=== PATIENT | male | born 1945 | race Caucasian/White ===

== ENCOUNTER 2020-07-22 11:58 | Inpatient (IN) | payer MEDICARE, BC ==
[~2020-07-22] VITALS: Ht 180.3 cm; Wt 83.9 kg
--- NOTE | 2020-07-22 12:05 | NUR ---
BIB C/O ABDOMINAL PAIN AND NON-RADIATING CHEST PAIN STARTED AROUND 0900. RATES PAIN 10/10. DENIES SOB. RESPIRATION REGULAR AND UNLABORED. ATTACHED TO THE MONITOR. WARM BLANKET PROVIDED. WILL CONTINUE TO MONITOR THE PATIENT.
[2020-07-22] MEDS ORDERED: ZOLP10TA2 PO (12:13)
[2020-07-22] MEDS ORDERED: ROSU10TA29 PO (12:13)
[2020-07-22] MEDS ORDERED: APAL60TA PO (12:13)
[2020-07-22] MEDS ORDERED: LORA-259 PO (12:13)
[2020-07-22] MEDS ORDERED: ASPI-1169 PO (12:13)
[2020-07-22] MEDS ORDERED: CALC1TAB30 PO (12:13)
[2020-07-22] MEDS ORDERED: AMLO-213 PO (12:13)
[2020-07-22] MEDS ORDERED: MULT-978 PO (12:13)
[2020-07-22] MEDS ORDERED: OLME40TA18 PO (12:13)
[2020-07-22] MEDS ORDERED: PANTOPRAZOLE 40 MG VIAL ONE (12:15)
[2020-07-22] MEDS ORDERED: ONDANSETRON HCL/PF 4 MG/2 ML VIAL ONE (12:15)
[2020-07-22] MEDS ORDERED: HYDROMORPHONE 1 MG/1 ML DISP.SYRIN ONE (12:16)
[2020-07-22 12:28] LABS: BASOPHILS % (AUTO) 0.5 % (0.0-2.0); EOSINOPHILS % (AUTO) 0.5 % (0.0-6.0); HEMATOCRIT 44 % (39-51); HEMOGLOBIN 15.2 g/dL (13.5-17.5); LYMPHOCYTES % (AUTO) 13.1 % (20.0-44.0); MEAN CORPUSCULAR HGB CONC 35 g/dl (31.0-36.0); MEAN CORPUSCULAR VOLUME 87 fL (80-96); MONOCYTES # (AUTO) 0.5 /CMM (0.1-1.30); MONOCYTES % (AUTO) 6.3 % (2.0-12.0); NEUTROPHILS # (AUTO) 5.9 /CMM (1.8-8.9); NEUTROPHILS % (AUTO) 79.6 % (43.0-81.0); PLATELET COUNT (AUTO) 223 /CMM (150-450); RED BLOOD CELL COUNT(AUTO) 5.02 MIL/uL (4.5-6.0); WHITE BLOOD COUNT (AUTO) 7.4 K/uL (4.3-11.0)
[2020-07-22] MEDS ORDERED: HYDROMORPHONE INJ 2 MG/ML DISP.SYRIN IV ONE (12:30)
[2020-07-22] MEDS ORDERED: IV NS 0.9% 500 ML BAG IV ONE (12:30)
[2020-07-22] MEDS ORDERED: ONDANSETRON HCL/PF 4 MG/2 ML VIAL IVP ONE (12:30)
[2020-07-22] MEDS ORDERED: PANTOPRAZOLE 40 MG VIAL IV ONE (12:30)
[2020-07-22 12:33] LABS: CALCIUM, SERUM 9.5 mg/dL (8.5-10.1); POTASSIUM 2.9 mmol/L (3.5-5.1)
[2020-07-22 12:39] LABS: ALBUMIN 4.3 g/dL (3.4-5.0); BILIRUBIN,DIRECT 0.5 mg/dL (0.0-0.2); BILIRUBIN,TOTAL 1.3 mg/dL (0.2-1.0); TOTAL PROTEIN, SERUM 7.1 g/dL (6.4-8.2)
[2020-07-22] MEDS ORDERED: POTASSIUM CHLORIDE 20 MEQ TAB.PRT.SR PO ONE ×2 (13:00→13:46)
--- NOTE | 2020-07-22 13:26 | NUR ---
CALLED [facility], PAGED JAYCE
[2020-07-22] MEDS ORDERED: hydrALAZINE HCL IV 20 MG VIAL IV ONE (13:30)
--- NOTE | 2020-07-22 13:32 | NUR ---
LUIS MANUEL NEWBY. PER SVETLANA'S OFFICE, PATIENT WILL GO UNDER DR. ISSA
--- NOTE | 2020-07-22 13:44 | NUR ---
DR. ISSA GAVE TELEPHONE ORDERS
[2020-07-22] MEDS ORDERED: hydrALAZINE HCL IV 20 MG VIAL ONE (13:46)
--- NOTE | 2020-07-22 14:01 | NUR ---
CALLED NURSING SUP FOR TELE BED
--- NOTE | 2020-07-22 14:21 | NUR ---
BED 307-1
--- NOTE | 2020-07-22 14:40 | NUR ---
REPORT GIVEN TO FLORENCIA DUNLAP FOR CODY
[2020-07-22] MEDS ORDERED: LORAZEPAM 1 MG TABLET PO PRN (15:00)
[2020-07-22] MEDS ORDERED: ZOLPIDEM TARTRATE 10 MG TABLET PO PRN (15:00)
--- NOTE | 2020-07-22 15:09 | NUR ---
PT TRANSPORTED TO UNIT ON [facility] WITH EMT ADN RN AT BEDSIDE W/ ACLS PROTOCOL. NAD NOTED DURING TRANSPORT. PT AMBULATED FROM [facility] TO BED ON [facility] WITH AN AIDE OF HIS CANE.
--- NOTE | 2020-07-22 15:10 | NUR ---
RN NOTES RECEIVED IN UNIT AT ROOM 307-1, PATIENT AMBULATED TO BED USING SINGLE POINT CANE, ACCOMPANIED BY RP.
[2020-07-22] MEDS ORDERED: CLONIDINE HCL 0.1 MG TABLET PO PRN (15:30)
[2020-07-22] MEDS ORDERED: IV D5/ 0.9% NACL 1,000 ML IV PRN (15:30)
[2020-07-22] MEDS ORDERED: MORPHINE SULFATE INJ 2 MG/ML DISP.SYRIN IV PRN (15:30)
[2020-07-22] MEDS ORDERED: ACETAMINOPHEN 325 MG TABLET PO PRN (15:30)
[2020-07-22] MEDS ORDERED: ONDANSETRON HCL/PF 4 MG/2 ML VIAL IVP PRN (15:30)
[2020-07-22 15:51] LABS: PHOSPHORUS 3.6 mg/dL (2.5-4.9)
[2020-07-22] MEDS: POTASSIUM CHLORIDE 20 MEQ TAB.PRT.SR PO SCH ×3 (15:52→18:45)
[2020-07-22 16:00] VITALS: BP 179/87
[2020-07-22] MEDS: AMLODIPINE BESYLATE 10 MG TABLET PO SCH (16:02)
[2020-07-22 16:21] LABS: THYROID STIMULATING HORMONE 3.019 uIU/mL (0.358-3.74)
[2020-07-22] MEDS ORDERED: ATORVASTATIN 10 MG TABLET PO SCH (18:00)
[2020-07-22] MEDS ORDERED: LEVOFLOXACIN 500 MG /D5W 100ML 500 MG in PREMIX 1 EA IV SCH (19:00)
[2020-07-22] MEDS: METRONIDAZOLE 500MG/ NS 100ML 500 MG in PREMIX 1 EA IV SCH (19:30)
--- NOTE | 2020-07-22 19:41 | NUR ---
DELIVERY DRIVER ASSISTANT OPENING NOTES PATIENT WAS SEEN AWAKE LYING IN BED. PATIENT IS ALERT AND ORIENTED X4. PATIENT IS ON 2L OF OXYGEN VIA NASAL CANNULA WITH NO RESPIRATORY DISTRESS NOTED. PT HAS AN IV ACCESS ON HIS LEFT WRIST G#20 CURRENTLY RUNNING AN ANTIBIOTIC. SAFETY PRECAUTIONS IN PLACE: BED LOCKED, SIDE RAILS UP, AND CALL LIGHT WITHIN REACH OF THE PATIENT. WILL CONTINUE TO MONITOR THE PATIENT.
[2020-07-22 20:24] VITALS: BP 180/68
[2020-07-22] MEDS ORDERED: ENOXAPARIN SODIUM 40 MG/0.4 ML DISP.SYRIN SQ SCH (21:00)
--- NOTE | 2020-07-22 23:18 | NUR ---
INFORMATION SYSTEMS AUDITOR NOTES PATIENT CURRENTLY HAS A BLOOD PRESSURE OF 170/77 AFTER RECEIVING CATAPRES 0.1 MG BY MOUTH NEEDED FOR A BLOOD PRESSURE OF 177/77 AT 2116. PATIENT'S CURRENTLY ASYMPTOMATIC. PER PATIENT, HIS BLOOD PRESSURE USUALLY RANGES ABNORMALLY HIGH. DR. ISSA MADE AWARE. NO NEW ORDERS WERE GIVEN. WILL CONTINUE TO MONITOR THE PATIENT.
[2020-07-23 00:01] VITALS: BP 165/83
[2020-07-23] MEDS: METRONIDAZOLE 500MG/ NS 100ML 500 MG in PREMIX 1 EA IV SCH ×2 (02:30→10:00)
[2020-07-23 04:29] VITALS: BP 155/67
[2020-07-23 05:53] LABS: BASOPHILS % (AUTO) 0.2 % (0.0-2.0); EOSINOPHILS % (AUTO) 1.9 % (0.0-6.0); HEMATOCRIT 38 % (39-51); HEMOGLOBIN 12.9 g/dL (13.5-17.5); LYMPHOCYTES # (AUTO) 0.3 /CMM (0.8-4.8); LYMPHOCYTES % (AUTO) 7.8 % (20.0-44.0); MEAN CORPUSCULAR HGB CONC 34 g/dl (31.0-36.0); MEAN CORPUSCULAR VOLUME 89 fL (80-96); MONOCYTES # (AUTO) 0.3 /CMM (0.1-1.30); MONOCYTES % (AUTO) 6.6 % (2.0-12.0); NEUTROPHILS # (AUTO) 3.5 /CMM (1.8-8.9); NEUTROPHILS % (AUTO) 83.5 % (43.0-81.0); PLATELET COUNT (AUTO) 149 /CMM (150-450); RED BLOOD CELL COUNT(AUTO) 4.25 MIL/uL (4.5-6.0); WHITE BLOOD COUNT (AUTO) 4.2 K/uL (4.3-11.0)
[2020-07-23 06:15] LABS: ALBUMIN 3.2 g/dL (3.4-5.0); CALCIUM, SERUM 8.4 mg/dL (8.5-10.1); CREATININE 0.9 mg/dL (0.6-1.3); MAGNESIUM 2.1 mg/dL (1.8-2.4); PHOSPHORUS 3.4 mg/dL (2.5-4.9); POTASSIUM 3.8 mmol/L (3.5-5.1); TOTAL PROTEIN, SERUM 5.7 g/dL (6.4-8.2)
--- NOTE | 2020-07-23 07:04 | NUR ---
STAFF TRAINING AND DEVELOPMENT MANAGER CLOSING NOTES PATIENT WAS SEEN AWAKE LYING IN BED. PATIENT IS ALERT AND ORIENTED X4. PATIENT IS ABLE TO MAKE HIS NEEDS KNOWN.; PATIENT IS ON 2L OF OXYGEN VIA NASAL CANNULA WITH NO RESPIRATORY DISTRESS NOTED. PT HAS AN IV ACCESS ON HIS LEFT WRIST G#20 CURRENTLY RUNNING D5NS AT 75 ML/HOUR. SAFETY PRECAUTIONS IN PLACE: BED LOCKED, BED ALARM ON, SIDE RAILS UP X3, AND CALL LIGHT WITHIN REACH OF THE PATIENT. WILL ENDORSE CARE TO DAY SHIFT NURSE.
[2020-07-23 07:49] VITALS: BP 156/74
--- NOTE | 2020-07-23 08:00 | NUR ---
RN OPENING NOTE RECEIVED PATIENT IN BED, AWAKE AND ORIENTED X 4, ABLE TO RESPONDS ALL STIMULI. NO DISTRESS OR DISCOMFORT OBSERVED. SKIN IS WARM TO TOUCH, KEEP CLEAN/DRY, INTACT IV SITE ON LEFT WRIST G20 RUNNING D5 NS AT 75ML/HR CURRENTLY. RESPIRATORY EVEN AND UNLABORED ON ROOM AIR. KEPT ELEVATED HOB FOR ENSURE AIRWAY AND ASPIRATION PRECAUTION, ALSO LOWEST BED POSITION. CALL LIGHT WITHIN REACH, WILL CONTINUE TO MONITOR.
[2020-07-23] MEDS ORDERED: DEXL60CA3 PO (08:22)
[2020-07-23] MEDS: AMLODIPINE BESYLATE 10 MG TABLET PO SCH (08:44)
[2020-07-23] MEDS ORDERED: NIFEdipine XL (30MG) 30 MG TAB PO SCH (09:00)
[2020-07-23] MEDS ORDERED: LOSARTAN POTASSIUM 50 MG TABLET PO SCH (09:00)
[2020-07-23] MEDS ORDERED: PANTOPRAZOLE 40 MG VIAL IV SCH (09:00)
[2020-07-23] MEDS ORDERED: ASPIRIN 81 MG TAB.CHEW PO SCH (09:00)
--- NOTE | 2020-07-23 12:50 | NUR ---
GIVEN DISCHARGE INSTRUCTION INCLUDE LEAD NET SOFTWARE DEVELOPER NEW MEDICATION, AND SIDE EFFECTS. PATIENT COMPLETED HIDE SCAN, WILL FOLLOW UP MD ON NEXT WEEK. PATIENT IN MEDICALLY STABLE CONDITION.
== END 2020-07-23 13:00 | disposition home or self-care (01) | DRG 392 ==
LOC: ER 11:58 → TELE 14:25 → MED 07-23 08:00
PROVIDERS: ADMIT Legal Medicine; ATTEND Legal Medicine
DX: K29.80 Duodenitis without bleeding (principal); I10 Essential (primary) hypertension; N32.81 Overactive bladder; K80.20 Calculus of gallbladder without cholecystitis without obstruction; E87.6 Hypokalemia; Z20.822 Contact with and (suspected) exposure to COVID-19; Z85.46 Personal history of malignant neoplasm of prostate; Z90.49 Acquired absence of other specified parts of digestive tract; Z98.890 Other specified postprocedural states; Z79.82 Long term (current) use of aspirin; Z79.899 Other long term (current) drug therapy; F41.9 Anxiety disorder, unspecified; G47.00 Insomnia, unspecified; R07.82 Intercostal pain; R74.01 Elevation of levels of liver transaminase levels; K40.20 Bilateral inguinal hernia, without obstruction or gangrene, not specified as recurrent
CPT/HCPCS: 36415; 71045-TC; 76705-TC; 78226; 80048-TC; 80053-TC; 80076-TC; 82962-TC; 83690-TC; 83735-TC; 84075-TC; 84100-TC; 84439-TC; 84443-TC; 84484-TC; 85025-TC; 87081-TC; A4216; A9537; C9113; C9803; G0378; J0360; J1170; J1650; J1956; J2270; J2405; J7040; J7042

== ENCOUNTER 2022-10-18 12:54 | Inpatient (IN) | payer MEDICARE, BC ==
[~2022-10-18] VITALS: Ht 177.8 cm; Wt 90.9 kg
[~2022-10-18 12:54] MED LIST: AMLO-213 PO; ASPI-1169 PO; CALC1TAB30 PO; DEXL60CA3 PO; LORA-259 PO; MULT-978 PO; OLME40TA18 PO; ROSU10TA29 PO; ZOLP10TA2 PO
[2022-10-18] MEDS ORDERED: IV NS 0.9% 250 ML IV ONE (13:25)
[2022-10-18] MEDS ORDERED: IOHEXOL-350 100 ML VIAL IV ONE (13:25)
[2022-10-18 13:34] LABS: BASOPHILS % (AUTO) 0.3 % (0.0-2.0); EOSINOPHILS % (AUTO) 0.3 % (0.0-6.0); HEMATOCRIT 39 % (39-51); HEMOGLOBIN 13.2 g/dL (13.5-17.5); LYMPHOCYTES # (AUTO) 0.5 K/uL (0.8-4.8); LYMPHOCYTES % (AUTO) 4.1 % (20.0-44.0); MEAN CORPUSCULAR HEMOGLOBIN 29 PG (26.0-33.0); MEAN CORPUSCULAR HGB CONC 34 g/dl (31.0-36.0); MEAN CORPUSCULAR VOLUME 86 fL (80-96); MONOCYTES # (AUTO) 0.6 K/uL (0.1-1.30); MONOCYTES % (AUTO) 5.8 % (2.0-12.0); NEUTROPHILS # (AUTO) 9.9 K/uL (1.8-8.9); NEUTROPHILS % (AUTO) 89.5 % (43.0-81.0); PLATELET COUNT (AUTO) 244 K/uL (150-450); RED BLOOD CELL COUNT(AUTO) 4.56 MIL/uL (4.5-6.0); RED CELL DISTRIBUTION WIDTH 13.8 % (11.5-15.0)
[2022-10-18 13:45] LABS: INR 1.02 (0.91-1.10); PARTIAL THROMBOPLASTIN TIME 26.5 SEC (24.3-34.3); PROTHROMBIN TIME 10.7 SECS (9.2-11.1)
[2022-10-18 13:58] LABS: ALANINE AMINOTRANSFERASE 21 U/L (12-78); ALBUMIN 3.1 g/dL (3.4-5.0); ALKALINE PHOSPHATASE 93 U/L (46-116); BILIRUBIN,DIRECT 0.2 mg/dL (0.0-0.2); BILIRUBIN,TOTAL 1.3 mg/dL (0.2-1.0); TOTAL PROTEIN, SERUM 6.9 g/dL (6.4-8.2)
[2022-10-18 14:09] LABS: ASPARTATE AMINOTRANSFERASE 14 U/L (15-37)
[2022-10-18] MEDS ORDERED: MORPHINE SULFATE INJ 2 MG/ML DISP.SYRIN IV ONE (14:30)
[2022-10-18] MEDS ORDERED: ONDANSETRON HCL/PF - ER 4 MG/2 ML VIAL IV ONE (14:30)
[2022-10-18] MEDS ORDERED: ONDANSETRON HCL/PF 4 MG/2 ML VIAL ONE (14:38)
[2022-10-18] MEDS ORDERED: MORPHINE SULFATE INJ 2 MG/ML DISP.SYRIN ONE (14:39)
[2022-10-18 15:02] LABS: CALCIUM, SERUM 9.4 mg/dL (8.5-10.1); CARBON DIOXIDE 22 mmol/L (21-32); CHLORIDE 103 mmol/L (98-107); CREATININE 1.9 mg/dL (0.6-1.3); GLUCOSE 124 mg/dL (74-106); POTASSIUM 3.3 mmol/L (3.5-5.1); SODIUM SERUM 142 mmol/L (136-145); UREA NITROGEN, BLOOD 33 mg/dL (7-18)
[2022-10-18 15:07] LABS: ALANINE AMINOTRANSFERASE 20 U/L (12-78); ALKALINE PHOSPHATASE 86 U/L (46-116); ASPARTATE AMINOTRANSFERASE 14 U/L (15-37); BILIRUBIN,TOTAL 1.2 mg/dL (0.2-1.0); TOTAL PROTEIN, SERUM 6.9 g/dL (6.4-8.2)
[2022-10-18] MEDS ORDERED: ROSU10TA2 PO (15:20)
[2022-10-18] MEDS ORDERED: FLUT1DIS5 IH (15:20)
[2022-10-18] MEDS ORDERED: GEMTESA PO (15:20)
[2022-10-18] MEDS ORDERED: TRAZ-257 PO (15:20)
[2022-10-18] MEDS ORDERED: ALBU8.5H8 IH (15:20)
[2022-10-18] MEDS ORDERED: OXYC5TAB3 PO (15:20)
[2022-10-18] MEDS ORDERED: FLUT12AE5 IH (15:20)
[2022-10-18] MEDS ORDERED: OLME40TA12 PO (15:20)
[2022-10-18] MEDS ORDERED: AMLO10TA4 PO (15:20)
[2022-10-18] MEDS ORDERED: IV NS 0.9% 1,000 ML BAG IV ONE (15:30)
[2022-10-18] MEDS ORDERED: MORPHINE SULFATE INJ 2 MG/ML DISP.SYRIN IV PRN (16:30)
[2022-10-18] MEDS ORDERED: MAGNESIUM HYDROXIDE 30 ML UDC PO PRN (16:30)
[2022-10-18] MEDS ORDERED: ACETAMINOPHEN 325 MG TABLET PO PRN (16:30)
[2022-10-18] MEDS ORDERED: Z GUARD REMEDY 4 OZ OINT TP PRN (16:30)
[2022-10-18] MEDS ORDERED: HYDROCODONE/APAP 5/325MG TABLET PO PRN (16:30)
[2022-10-18] MEDS ORDERED: MAG HYDROX/AL HYDROX/SIMETH 30 ML UDC PO PRN (16:30)
[2022-10-18] MEDS ORDERED: ONDANSETRON HCL/PF 4 MG/2 ML VIAL IVP PRN (16:30)
[2022-10-18] MEDS ORDERED: HEPARIN SODIUM, PORCINE 5000 UNITS/1 ML VIAL IV ONE (16:37)
[2022-10-18] MEDS: HEPARIN INFUSION/D5W 500 ML IV PRN (18:41)
[2022-10-18 20:00] VITALS: BP 135/65; TEMP 98.2; O2SAT 95
[2022-10-18] MEDS: TRAZODONE 50 MG TABLET PO SCH (22:00)
[2022-10-18] MEDS ORDERED: ALBUTEROL FS 2.5 MG/3 ML VIAL.NEB IH PRN (22:30)
[2022-10-18] MEDS: AMLODIPINE BESYLATE 10 MG TABLET PO SCH (22:35)
[2022-10-18] MEDS: TRAZODONE 50 MG TABLET PO PRN (22:40)
[2022-10-19] VITALS (10 sets, daily range): BP systolic 108–172; BP diastolic 58–78; TEMP 98–98.8; O2SAT 94–98
[2022-10-19] MEDS ORDERED: CLONIDINE HCL 0.1 MG TABLET PO ONE (05:00)
[2022-10-19 06:27] LABS: BASOPHILS % (AUTO) 0.1 % (0.0-2.0); EOSINOPHILS # (AUTO) 0.1 K/uL (0.0-0.7); EOSINOPHILS % (AUTO) 1.8 % (0.0-6.0); HEMATOCRIT 32 % (39-51); HEMOGLOBIN 11.2 g/dL (13.5-17.5); LYMPHOCYTES # (AUTO) 0.6 K/uL (0.8-4.8); LYMPHOCYTES % (AUTO) 7.6 % (20.0-44.0); MEAN CORPUSCULAR HEMOGLOBIN 30 PG (26.0-33.0); MEAN CORPUSCULAR HGB CONC 35 g/dl (31.0-36.0); MEAN CORPUSCULAR VOLUME 86 fL (80-96); MONOCYTES # (AUTO) 0.5 K/uL (0.1-1.30); MONOCYTES % (AUTO) 6.2 % (2.0-12.0); NEUTROPHILS # (AUTO) 6.1 K/uL (1.8-8.9); NEUTROPHILS % (AUTO) 84.3 % (43.0-81.0); PLATELET COUNT (AUTO) 192 K/uL (150-450); RED BLOOD CELL COUNT(AUTO) 3.74 MIL/uL (4.5-6.0); RED CELL DISTRIBUTION WIDTH 13.9 % (11.5-15.0); WHITE BLOOD COUNT (AUTO) 7.3 K/uL (4.3-11.0)
[2022-10-19 06:47] LABS: CHOLESTEROL 151 mg/dL (<200); HDL CHOLESTEROL 46 mg/dL (40-60); LDL 84 mg/dL (0-99); TRIGLYCERIDES 92 mg/dL (30-150)
[2022-10-19 06:50] LABS: CALCIUM, SERUM 8.7 mg/dL (8.5-10.1); CARBON DIOXIDE 25 mmol/L (21-32); CHLORIDE 105 mmol/L (98-107); GLUCOSE 121 mg/dL (74-106); PHOSPHORUS 3.6 mg/dL (2.5-4.9); SODIUM SERUM 141 mmol/L (136-145); UREA NITROGEN, BLOOD 26 mg/dL (7-18)
[2022-10-19 06:57] LABS: MAGNESIUM 2.4 mg/dL (1.8-2.4); POTASSIUM 2.8 mmol/L (3.5-5.1)
[2022-10-19] MEDS ORDERED: FLUTICASONE/SALMETEROL 1 DISK IH SCH (07:05)
[2022-10-19] MEDS ORDERED: BUDESONIDE RESPULE INH 0.5 MG/2 ML AMPUL.NEB IH SCH (07:05)
[2022-10-19] MEDS: PANTOPRAZOLE 40 MG TABLET.DR PO SCH (08:17)
[2022-10-19] MEDS: POTASSIUM CHLORIDE 20 MEQ TAB.PRT.SR PO SCH ×3 (09:46→11:56)
[2022-10-19] MEDS: FLUTICASONE/VILANTEROL 1 EACH BLST.W.DEV IH SCH (09:47)
[2022-10-19] MEDS: HEPARIN INFUSION/D5W 500 ML IV PRN (10:54)
[2022-10-19] MEDS: TRAZODONE 50 MG TABLET PO SCH (22:00)
[2022-10-19] MEDS: LOSARTAN POTASSIUM 50 MG TABLET PO SCH (22:25)
[2022-10-19] MEDS: TRAZODONE 50 MG TABLET PO PRN (22:25)
[2022-10-19] MEDS: AMLODIPINE BESYLATE 10 MG TABLET PO SCH (22:26)
[2022-10-19] MEDS: ATORVASTATIN 40 MG TABLET PO SCH (22:26)
[2022-10-20] VITALS: BP 125/60; TEMP 98.6; O2SAT 94
[2022-10-20 04:00] VITALS: BP 137/64; TEMP 98.9; O2SAT 95
[2022-10-20] MEDS: HEPARIN INFUSION/D5W 500 ML IV PRN (04:37)
[2022-10-20 06:38] LABS: CALCIUM, SERUM 8.7 mg/dL (8.5-10.1)
[2022-10-20] MEDS: PANTOPRAZOLE 40 MG TABLET.DR PO SCH (07:17)
[2022-10-20 08:00] VITALS: BP 152/66; TEMP 98.2; O2SAT 96
[2022-10-20] MEDS: FLUTICASONE/VILANTEROL 1 EACH BLST.W.DEV IH SCH (08:34)
[2022-10-20] MEDS: APIXABAN 5 MG TABLET PO SCH ×2 (09:51→17:33)
[2022-10-20] MEDS: POTASSIUM CHLORIDE 20 MEQ TAB.PRT.SR PO SCH ×3 (11:16→13:03)
[2022-10-20 12:00] VITALS: BP 164/69; TEMP 98.2; O2SAT 96
[2022-10-20] MEDS: AMLODIPINE BESYLATE 10 MG TABLET PO SCH (14:33)
[2022-10-20 16:00] VITALS: BP 140/58; TEMP 99.1; O2SAT 96
[2022-10-20] MEDS ORDERED: IOHEXOL-350 100 ML VIAL IV ONE (16:17)
[2022-10-20] MEDS ORDERED: IV NS 0.9% 250 ML IV ONE (16:17)
[2022-10-20] MEDS ORDERED: CT SWABBABLE VALVE TRANS SET 1 EA INFUS.SET MC ONE (16:17)
[2022-10-20 20:00] VITALS: BP 147/63; TEMP 98; O2SAT 99
[2022-10-20] MEDS: ATORVASTATIN 40 MG TABLET PO SCH (22:00)
[2022-10-20] MEDS: TRAZODONE 50 MG TABLET PO SCH (22:00)
[2022-10-20] MEDS: TRAZODONE 50 MG TABLET PO PRN (22:03)
[2022-10-20] MEDS: LOSARTAN POTASSIUM 50 MG TABLET PO SCH (22:03)
[2022-10-21] VITALS: BP 160/62; TEMP 98; O2SAT 99
[2022-10-21 04:00] VITALS: BP 161/69; TEMP 98.9; O2SAT 96
[2022-10-21 05:00] VITALS: BP 144/70; O2SAT 95
[2022-10-21 06:57] LABS: CALCIUM, SERUM 9.3 mg/dL (8.5-10.1); CREATININE 0.8 mg/dL (0.6-1.3); POTASSIUM 3.5 mmol/L (3.5-5.1)
[2022-10-21 08:00] VITALS: BP 147/83; TEMP 98.4; O2SAT 96
[2022-10-21] MEDS: PANTOPRAZOLE 40 MG TABLET.DR PO SCH (08:33)
[2022-10-21] MEDS: AMLODIPINE BESYLATE 10 MG TABLET PO SCH (08:53)
[2022-10-21] MEDS: APIXABAN 5 MG TABLET PO SCH (08:54)
[2022-10-21] MEDS: FLUTICASONE/VILANTEROL 1 EACH BLST.W.DEV IH SCH (09:36)
[2022-10-21 12:00] VITALS: BP 130/69; TEMP 98.7; O2SAT 96
[2022-10-21] MEDS ORDERED: APIX5TAB PO (14:29)
[2022-10-21 16:00] VITALS: BP 145/75; TEMP 98; O2SAT 95
[2022-10-27] MEDS ORDERED: APIXABAN 5 MG TABLET PO SCH (09:00)
== END 2022-10-21 16:55 | disposition home health service (06) | DRG 175 ==
LOC: ER 13:18 → TELE1 16:26
PROVIDERS: ADMIT Nurse Practitioner Acute Care; ATTEND Internal Medicine
DX: I26.99 Other pulmonary embolism without acute cor pulmonale (principal); N17.0 Acute kidney failure with tubular necrosis; D68.59 Other primary thrombophilia; E44.1 Mild protein-calorie malnutrition; I74.5 Embolism and thrombosis of iliac artery; C79.51 Secondary malignant neoplasm of bone; I12.9 Hypertensive chronic kidney disease with stage 1 through stage 4 chronic kidney disease, or unspecified chronic kidney disease; N18.9 Chronic kidney disease, unspecified; C61 Malignant neoplasm of prostate; F41.9 Anxiety disorder, unspecified; M19.90 Unspecified osteoarthritis, unspecified site; E78.5 Hyperlipidemia, unspecified; E66.9 Obesity, unspecified; N32.81 Overactive bladder; G47.33 Obstructive sleep apnea (adult) (pediatric); G47.00 Insomnia, unspecified; Z90.79 Acquired absence of other genital organ(s); Z90.49 Acquired absence of other specified parts of digestive tract; Z79.51 Long term (current) use of inhaled steroids; M51.37 Other intervertebral disc degeneration, lumbosacral region; M16.0 Bilateral primary osteoarthritis of hip; K80.20 Calculus of gallbladder without cholecystitis without obstruction; I73.9 Peripheral vascular disease, unspecified; I70.8 Atherosclerosis of other arteries; G89.29 Other chronic pain; E88.09 Other disorders of plasma-protein metabolism, not elsewhere classified; F17.290 Nicotine dependence, other tobacco product, uncomplicated; K57.30 Diverticulosis of large intestine without perforation or abscess without bleeding; Z68.30 Body mass index [BMI] 30.0-30.9, adult; Z74.09 Other reduced mobility; N13.9 Obstructive and reflux uropathy, unspecified; Z98.890 Other specified postprocedural states; R32 Unspecified urinary incontinence; Z96.89 Presence of other specified functional implants
CPT/HCPCS: 36415; 70450-TC; 70496-TC; 70498-TC; 71045-TC; 72131-TC; 72148-TC; 76770-TC; 80048-TC; 80053-TC; 80061-TC; 80076-TC; 82962-TC; 83735-TC; 84100-TC; 84484-TC; 85025-TC; 85730-TC; 87081-TC; 93307-TC; 93970-TC; 97112-TC; 97116-TC; 97530-TC; G0378; J1644; J2270; J2405; J7030; J7040; J7050; Q9967

== ENCOUNTER 2023-05-17 09:18 | Inpatient (IN) | payer MEDICARE, BC ==
[~2023-05-17] VITALS: Ht 180.3 cm; Wt 88.9 kg
[~2023-05-17 09:18] MED LIST changes: +ALBU8.5H8 IH; -AMLO-213 PO; +AMLO10TA4 PO; +APIX5TAB PO; -ASPI-1169 PO; -CALC1TAB30 PO; -DEXL60CA3 PO; +FLUT12AE5 IH; +FLUT1DIS5 IH; +GEMTESA PO; -LORA-259 PO; -MULT-978 PO; +OLME40TA12 PO; -OLME40TA18 PO; +OXYC5TAB3 PO; +ROSU10TA2 PO; -ROSU10TA29 PO; +TRAZ-257 PO; -ZOLP10TA2 PO
[2023-05-17] MEDS ORDERED: POLY17PO4 PO (10:34)
[2023-05-17] MEDS ORDERED: APIX5TAB PO (10:34)
[2023-05-17 11:03] LABS: BASOPHILS % (AUTO) 0.1 % (0.0-2.0); HEMATOCRIT 32 % (39-51); HEMOGLOBIN 10.7 g/dL (13.5-17.5); LYMPHOCYTES # (AUTO) 0.5 K/uL (0.8-4.8); LYMPHOCYTES % (AUTO) 3.2 % (20.0-44.0); MEAN CORPUSCULAR HEMOGLOBIN 29 PG (26.0-33.0); MEAN CORPUSCULAR HGB CONC 34 g/dl (31.0-36.0); MEAN CORPUSCULAR VOLUME 86 fL (80-96); MONOCYTES # (AUTO) 0.7 K/uL (0.1-1.30); MONOCYTES % (AUTO) 4.9 % (2.0-12.0); NEUTROPHILS % (AUTO) 91.8 % (43.0-81.0); PLATELET COUNT (AUTO) 213 K/uL (150-450); RED BLOOD CELL COUNT(AUTO) 3.69 MIL/uL (4.5-6.0); RED CELL DISTRIBUTION WIDTH 13.6 % (11.5-15.0); WHITE BLOOD COUNT (AUTO) 15.3 K/uL (4.3-11.0)
[2023-05-17 11:55] LABS: CALCIUM, SERUM 8.3 mg/dL (8.5-10.1); CARBON DIOXIDE 23 mmol/L (21-32); CHLORIDE 103 mmol/L (98-107); CREATININE 1.4 mg/dL (0.6-1.3); GLUCOSE 121 mg/dL (74-106); SODIUM SERUM 137 mmol/L (136-145); UREA NITROGEN, BLOOD 29 mg/dL (7-18)
[2023-05-17] MEDS ORDERED: IOHEXOL-350 100 ML VIAL IV ONE (12:45)
[2023-05-17] MEDS ORDERED: CT SWABBABLE VALVE TRANS SET 1 EA INFUS.SET MC ONE (12:46)
[2023-05-17] MEDS ORDERED: IV NS 0.9% 250 ML IV ONE (12:46)
[2023-05-17 13:13] LABS: THYROID STIMULATING HORMONE 1.551 uIU/mL (0.358-3.74)
[2023-05-17] MEDS ORDERED: Z GUARD REMEDY 4 OZ OINT TP PRN (14:30)
[2023-05-17] MEDS ORDERED: ACETAMINOPHEN 325 MG TABLET PO PRN (14:30)
[2023-05-17] MEDS ORDERED: MAG HYDROX/AL HYDROX/SIMETH 30 ML UDC PO PRN (14:30)
[2023-05-17] MEDS ORDERED: MAGNESIUM HYDROXIDE 30 ML UDC PO PRN (14:30)
[2023-05-17] MEDS ORDERED: ONDANSETRON HCL/PF 4 MG/2 ML VIAL IVP PRN (14:30)
[2023-05-17] MEDS ORDERED: LORAZEPAM 0.5 MG TABLET PO PRN (15:00)
[2023-05-17] MEDS ORDERED: ALBUTEROL FS 2.5 MG/3 ML VIAL.NEB NEB PRN (15:00)
[2023-05-17 15:09] VITALS: BP 127/84; TEMP 98.4; O2SAT 92
[2023-05-17] MEDS: ALBUTEROL HALF STRENGTH 1.25 MG/3 ML VIAL.NEB NEB SCH (15:30)
[2023-05-17] MEDS ORDERED: oxyCODONE IR immediate release 5 MG TABLET PO PRN (15:30)
[2023-05-17] MEDS: IPRATROPIUM NEB FS 0.5 MG/2.5 ML AMPUL.NEB NEB SCH (15:30)
[2023-05-17 16:00] VITALS: BP 127/84; TEMP 98.4; O2SAT 92
[2023-05-17] MEDS: APIXABAN 5 MG TABLET PO SCH (16:29)
[2023-05-17 17:47] LABS: APPEARANCE,URINE SLIGHTLY CLOUDY (CLEAR); BILIRUBIN,URINE NEGATIVE (NEGATIVE); BLOOD, URINE 3+ Ery/uL (NEGATIVE); COLOR,URINE YELLOW (YELLOW); KETONES,URINE NEGATIVE (NEGATIVE); LEUKOCYTE ESTERASE ,URINE 1+ (NEGATIVE); NITRITE, URINE POSITIVE (NEGATIVE); PROTEIN,URINE 1+ mg/dl (NEGATIVE); UGLUCOSE NEGATIVE (NEGATIVE); UROBILINOGEN,URINE 0.2 EU/dL (0.2)
[2023-05-17 18:15] LABS: ADD URINE CULTURE YES; BACTERIA,URINE 1+ /HPF (None Seen); SQUAMOUS EPITHELIAL CELL,UR 0-2 /HPF (None Seen)
[2023-05-17 19:30] VITALS: O2SAT 97
[2023-05-17 19:45] VITALS: O2SAT 99
[2023-05-17] MEDS: CEFTRIAXONE 1 G in IV D5W 50 ML IV SCH (19:57)
[2023-05-17] MEDS: IV NS 0.9% 1,000 ML IV PRN (19:57)
[2023-05-17 20:00] VITALS: BP 161/68; TEMP 98; O2SAT 97
[2023-05-17] MEDS: LOSARTAN POTASSIUM 50 MG TABLET PO SCH (21:11)
[2023-05-17] MEDS: AMLODIPINE BESYLATE 10 MG TABLET PO SCH (21:12)
[2023-05-17] MEDS: TRAZODONE 50 MG TABLET PO SCH (21:13)
[2023-05-18] VITALS (12 sets, daily range): BP systolic 112–158; BP diastolic 56–72; TEMP 98–98.6; O2SAT 94–100
[2023-05-18 07:04] LABS: BASOPHILS % (AUTO) 0.1 % (0.0-2.0); EOSINOPHILS % (AUTO) 0.1 % (0.0-6.0); HEMATOCRIT 31 % (39-51); HEMOGLOBIN 10.2 g/dL (13.5-17.5); LYMPHOCYTES # (AUTO) 0.3 K/uL (0.8-4.8); LYMPHOCYTES % (AUTO) 2.8 % (20.0-44.0); MEAN CORPUSCULAR HEMOGLOBIN 29 PG (26.0-33.0); MEAN CORPUSCULAR HGB CONC 33 g/dl (31.0-36.0); MEAN CORPUSCULAR VOLUME 87 fL (80-96); MONOCYTES # (AUTO) 0.5 K/uL (0.1-1.30); MONOCYTES % (AUTO) 4.4 % (2.0-12.0); NEUTROPHILS # (AUTO) 11.5 K/uL (1.8-8.9); NEUTROPHILS % (AUTO) 92.6 % (43.0-81.0); PLATELET COUNT (AUTO) 200 K/uL (150-450); RED BLOOD CELL COUNT(AUTO) 3.54 MIL/uL (4.5-6.0); RED CELL DISTRIBUTION WIDTH 13.4 % (11.5-15.0); WHITE BLOOD COUNT (AUTO) 12.4 K/uL (4.3-11.0)
[2023-05-18 07:11] LABS: CALCIUM, SERUM 8.3 mg/dL (8.5-10.1); CARBON DIOXIDE 21 mmol/L (21-32); CHLORIDE 103 mmol/L (98-107); CREATININE 1.5 mg/dL (0.6-1.3); GLUCOSE 184 mg/dL (74-106); MAGNESIUM 2.5 mg/dL (1.8-2.4); PHOSPHORUS 2.9 mg/dL (2.5-4.9); POTASSIUM 3.3 mmol/L (3.5-5.1); SODIUM SERUM 136 mmol/L (136-145); UREA NITROGEN, BLOOD 31 mg/dL (7-18)
[2023-05-18] MEDS: POLYETHYLENE GLYCOL 3350 17 GM POWD.PACK PO SCH (08:27)
[2023-05-18] MEDS ORDERED: LACTULOSE 10 G/15 ML UDC (PYXIS) PO PRN (10:30)
[2023-05-18] MEDS: POTASSIUM CHLORIDE 20 MEQ TAB.PRT.SR PO ONE (10:50)
[2023-05-18 15:19] LABS: ABG BASE EXCESS -0.4 mmol/L; ABG OXYGEN SATURATION 55.8 % (92.0-98.5); ABG PCO2 37.6 mmHg (35.0-45.0); ABG PH 7.419 (7.350-7.450); ABG PO2 30.8 mmHg (75.0-100.0); ABG TOTAL HEMOGLOBIN 12.7 G/dL (13.5-18.0); COHb 0.5 % (0.5-1.5); MetHb 0.2 % (0.0-1.5); O2Hb 55.4 % (94.0-97.0); SITE, ABG Other; VENT MODE, BG ROOM AIR
[2023-05-18 18:50] LABS: APPEARANCE,URINE SLIGHTLY CLOUDY (CLEAR); BILIRUBIN,URINE NEGATIVE (NEGATIVE); BLOOD, URINE 3+ Ery/uL (NEGATIVE); COLOR,URINE YELLOW (YELLOW); KETONES,URINE NEGATIVE (NEGATIVE); LEUKOCYTE ESTERASE ,URINE 1+ (NEGATIVE); NITRITE, URINE NEGATIVE (NEGATIVE); PROTEIN,URINE 1+ mg/dl (NEGATIVE); UGLUCOSE NEGATIVE (NEGATIVE); UROBILINOGEN,URINE 0.2 EU/dL (0.2)
[2023-05-18 19:15] LABS: ADD URINE CULTURE YES; BACTERIA,URINE Moderate /HPF (None Seen); RBC,URINE 21-50 /HPF (0-2)
[2023-05-18 19:16] LABS: SQUAMOUS EPITHELIAL CELL,UR Rare /HPF (None Seen)
[2023-05-18 19:21] LABS: CREATININE, URINE 119.5 MG/DL (30.0-125.0); URINE TOTAL PROTEIN 87.3 mg/dL (0-11.9)
[2023-05-18 19:46] LABS: EOSINOPHIL,URINE None Seen
[2023-05-19] VITALS: BP 109/60; TEMP 98.6; O2SAT 95
[2023-05-19 04:00] VITALS: BP 110/62; TEMP 98.5; O2SAT 95
[2023-05-19 06:59] LABS: BASOPHILS % (AUTO) 0.1 % (0.0-2.0); EOSINOPHILS # (AUTO) 0.1 K/uL (0.0-0.7); EOSINOPHILS % (AUTO) 1.1 % (0.0-6.0); HEMATOCRIT 30 % (39-51); HEMOGLOBIN 10.1 g/dL (13.5-17.5); LYMPHOCYTES # (AUTO) 0.4 K/uL (0.8-4.8); LYMPHOCYTES % (AUTO) 3.9 % (20.0-44.0); MEAN CORPUSCULAR HEMOGLOBIN 30 PG (26.0-33.0); MEAN CORPUSCULAR HGB CONC 34 g/dl (31.0-36.0); MEAN CORPUSCULAR VOLUME 86 fL (80-96); MONOCYTES # (AUTO) 0.5 K/uL (0.1-1.30); MONOCYTES % (AUTO) 5.5 % (2.0-12.0); NEUTROPHILS # (AUTO) 8.3 K/uL (1.8-8.9); NEUTROPHILS % (AUTO) 89.4 % (43.0-81.0); PLATELET COUNT (AUTO) 207 K/uL (150-450); RED BLOOD CELL COUNT(AUTO) 3.43 MIL/uL (4.5-6.0); RED CELL DISTRIBUTION WIDTH 13.5 % (11.5-15.0); WHITE BLOOD COUNT (AUTO) 9.2 K/uL (4.3-11.0)
[2023-05-19 07:25] LABS: ALANINE AMINOTRANSFERASE 126 U/L (12-78); ALBUMIN 2.1 g/dL (3.4-5.0); ALKALINE PHOSPHATASE 90 U/L (46-116); ASPARTATE AMINOTRANSFERASE 101 U/L (15-37); BILIRUBIN,TOTAL 0.5 mg/dL (0.2-1.0); CALCIUM, SERUM 8.3 mg/dL (8.5-10.1); CARBON DIOXIDE 22 mmol/L (21-32); CHLORIDE 105 mmol/L (98-107); CREATINE KINASE, TOTAL 29 U/L (39-308); CREATININE 1.2 mg/dL (0.6-1.3); GLUCOSE 120 mg/dL (74-106); MAGNESIUM 2.6 mg/dL (1.8-2.4); PHOSPHORUS 2.7 mg/dL (2.5-4.9); POTASSIUM 3.4 mmol/L (3.5-5.1); SODIUM SERUM 139 mmol/L (136-145); TOTAL PROTEIN, SERUM 6.2 g/dL (6.4-8.2); UREA NITROGEN, BLOOD 25 mg/dL (7-18)
[2023-05-19 08:00] VITALS: BP 112/56; TEMP 98.3; O2SAT 95
[2023-05-19] MEDS ORDERED: CEPH500C2 PO (13:00)
[2023-05-19] MEDS: POTASSIUM CHLORIDE 20 MEQ TAB.PRT.SR PO ONE (13:44)
[2023-05-20 09:08] LABS: *SPE A/G RATIO 0.6 (0.7-1.7); *SPE ALPHA-1-GLOBULIN 0.5 g/dL (0.0-0.4); *SPE ALPHA-2-GLOBULIN 1.3 g/dL (0.4-1.0); *SPE BETA GLOBULIN 0.8 g/dL (0.7-1.3); *SPE GLOBULIN, TOTAL 3.1 g/dL (2.2-3.9); *SPE M-SPIKE Not Observed g/dL (Not Observed); *SPE PROTEIN TOTAL 5.1 g/dL (6.0-8.5); *SPEGAMMA GLOBULIN 0.5 g/dL (0.4-1.8)
[2023-05-20 11:07] LABS: PTH, INTACT 76 pg/mL (15-65)
== END 2023-05-19 14:38 | disposition home or self-care (01) | DRG 689 ==
LOC: ER 09:25 → TELE1 12:36
PROVIDERS: ADMIT Internal Medicine; ATTEND Internal Medicine
DX: N39.0 Urinary tract infection, site not specified (principal); N17.0 Acute kidney failure with tubular necrosis; C79.9 Secondary malignant neoplasm of unspecified site; I12.9 Hypertensive chronic kidney disease with stage 1 through stage 4 chronic kidney disease, or unspecified chronic kidney disease; N18.9 Chronic kidney disease, unspecified; C61 Malignant neoplasm of prostate; I73.9 Peripheral vascular disease, unspecified; Z86.711 Personal history of pulmonary embolism; Z86.718 Personal history of other venous thrombosis and embolism; Z79.01 Long term (current) use of anticoagulants; Z85.46 Personal history of malignant neoplasm of prostate; F41.9 Anxiety disorder, unspecified; G47.00 Insomnia, unspecified; Z98.890 Other specified postprocedural states; Z90.49 Acquired absence of other specified parts of digestive tract; Z88.3 Allergy status to other anti-infective agents; Z88.2 Allergy status to sulfonamides; Z79.51 Long term (current) use of inhaled steroids; Z79.899 Other long term (current) drug therapy; K59.00 Constipation, unspecified; E78.5 Hyperlipidemia, unspecified
CPT/HCPCS: 36415; 36600; 71045-TC; 76700-TC; 76770-TC; 80048-TC; 80053-TC; 81001; 82550-TC; 82570-TC; 83735-TC; 83880; 83970; 84100-TC; 84155; 84165; 84300-TC; 84443-TC; 84484-TC; 85025-TC; 85378-TC; 87040-TC; 87086-TC; 93970-TC; 94762-TC; 94799-TC; 97112-TC; 97116-TC; 97530-TC; A4223; G0378; J0696; J7030; J7050; J7060; Q9967